=== PATIENT | male | born 1985 | race Caucasian/White ===

== ENCOUNTER 2020-11-22 11:20 | Emergency (ER) | payer SELFPAY ==
[~2020-11-22] VITALS: Ht 190.5 cm; Wt 68.2 kg
[2020-11-22 11:29] VITALS: BP 142/83; Ht 190.5 cm; Wt 68.2 kg
== END 2020-11-22 12:30 | disposition home or self-care (01) ==
LOC: D.ER 11:20
DX: T16.2XXA Foreign body in left ear, initial encounter (principal); X58.XXXA Exposure to other specified factors, initial encounter